=== PATIENT | male | born 1995 | race Asian ===

== ENCOUNTER 2019-10-28 23:50 | Emergency (ER) | payer SELFPAY ==
[~2019-10-28] VITALS: Ht 177.8 cm; Wt 59.0 kg
--- NOTE | 2019-10-29 00:14 | Emergency Room Report ---
History of Present Illness General Chief Complaint: Chest Pain Source: Patient Present Illness HPI Disclaimer: Please note that this report is being documented using [employer] technology. This can lead to erroneous entry secondary to incorrect interpretation by the dictating instrument. HPI: 24-year-old male presents for evaluation of chest numbness and tightness. Symptoms began abruptly approximately 1 hour ago. He noted tingling in a tightness over the left side of his chest rating the left arm. There was no syncope, no shortness of breath, no cough. States had a similar episode several years ago but nothing since. He was at rest when symptoms occurred. No exacerbating or relieving factors. He noted tachycardia and palpitations with a heart rate approximately 130 measured at home. He denies any recent fevers, URI symptoms, vomiting, diarrhea. He reports very poor sleep over the past few months giving him significant anxiety. He states he is unable to fall asleep or stay asleep only managing 2 to 4 hours of sleep nightly. He has concerned he may have a thyroid dysfunction. He does smoke tobacco through a vaporizing pen but denies alcohol, excessive caffeine, stimulant use. States there is a family history of hypertension his dad has coronary artery disease. PMH: Denies PSH: Orthopedic hand repair Allergies: Denies Social Hx: Tobacco use with vaporizer Allergies: Coded Allergies: No Known Allergies (Unverified , 10/29/19) COVID-19 Screening Contact w/high risk pt: No Recent Travel to affected area: No Experienced COVID-19 symptoms?: No Review of Systems All Other Systems: negative except mentioned in HPI Physical Exam Vital Signs Date Time Temp Pulse Resp B/P (MAP) Pulse Ox O2 Delivery O2 Flow Rate FiO2 10/28/19 23:57 98.4 76 18 128/80 (96) 97 Room Air General: Awake and alert, no acute distress HEENT: NC/AT. EOMI. Neck: Supple, trachea midline Chest Wall: No tenderness, no deformity Cardiovascular: RRR. S1 and S2 normal. No murmur appreciated Resp: Normal work of breathing. No cough, wheezing or crackles appreciated Abdomen: Abdomen is soft, nondistended. Nontender Skin: Intact. No abrasions, laceration or rash over the exposed skin MSK: Normal tone and bulk. Moving all extremities. No obvious deformity. Neuro: Awake and alert. Mentating appropriately. Medical Decision Making Diagnostic Impression: Primary Impression: Chest pain Additional Impressions: Sleep deficient Anxiety ER Course 24-year-old male presents for evaluation of palpitations, chest discomfort, anxiety. Arrives with stable vital signs and no acute distress. Differential includes was not limited to GERD, ACS, arrhythmia, anxiety disorder, electrolyte abnormality, dehydration, viral syndrome, thyroid dysfunction, stimulant use disorder to name a few. EKG shows sinus rhythm with some sinus arrhythmia but no ischemic changes, no biphasic T waves, overall unremarkable. Laboratory Tests Test 10/29/19 00:05 10/29/19 00:10 Urine Opiates Screen Negative (NEGATIVE) Urine Barbiturates Screen Negative (NEGATIVE) Phencyclidine (PCP) Screen Negative (NEGATIVE) Urine Amphetamines Screen Negative (NEGATIVE) Urine Benzodiazepines Screen Negative (NEGATIVE) Urine Cocaine Screen Negative (NEGATIVE) Urine Marijuana (THC) Screen Positive (NEGATIVE) H White Blood Count 9.3 K/UL (4.8-10.8) Red Blood Count 4.94 M/UL (4.70-6.10) Hemoglobin 15.0 G/DL (14.2-18.0) Hematocrit 42.8 % (42.0-52.0) Mean Corpuscular Volume 87 FL (80-99) Mean Corpuscular Hemoglobin 30.3 PG (27.0-31.0) Mean Corpuscular Hemoglobin Concent 35.0 G/DL (32.0-36.0) Red Cell Distribution Width 10.5 % (11.6-14.8) L Platelet Count 410 K/UL (150-450) Mean Platelet Volume 5.4 FL (6.5-10.1) L Neutrophils (%) (Auto) 63.0 % (45.0-75.0) Lymphocytes (%) (Auto) 28.0 % (20.0-45.0) Monocytes (%) (Auto) 6.0 % (1.0-10.0) Eosinophils (%) (Auto) 1.7 % (0.0-3.0) Basophils (%) (Auto) 1.3 % (0.0-2.0) Sodium Level 142 MMOL/L (136-145) Potassium Level 4.1 MMOL/L (3.5-5.1) Chloride Level 102 MMOL/L (98-107) Carbon Dioxide Level 29 MMOL/L (21-32) Anion Gap 11 mmol/L (5-15) Blood Urea Nitrogen 14 mg/dL (7-18) Creatinine 1.1 MG/DL (0.55-1.30) Estimated Glomerular Filtration Rate > 60 mL/min (>60) Glucose Level 95 MG/DL (74-106) Calcium Level 9.5 MG/DL (8.5-10.1) Total Bilirubin 0.7 MG/DL (0.2-1.0) Aspartate Amino Transferase (AST) 17 U/L (15-37) Alanine Aminotransferase (ALT) 22 U/L (12-78) Alkaline Phosphatase 49 U/L (46-116) Troponin I 0.000 ng/mL (0.000-0.056) Total Protein 8.4 G/DL (6.4-8.2) H Albumin 4.9 G/DL (3.4-5.0) Globulin 3.5 g/dL Albumin/Globulin Ratio 1.4 (1.0-2.7) Thyroid Stimulating Hormone (TSH) 0.585 uiU/mL (0.358-3.740) EKG Diagnostic Results EKG Time: 00:06 Rate: normal Rhythm: NSR ST Segments: no acute changes Other Impression Sinus rhythm, normal axis, normal intervals, no ST segment changes, T waves appear normal in morphology Rhythm Strip Diag. Results Rhythm Strip Time: 00:06 EP Interpretation: yes Rate: 70s Rhythm: NSR, no PVC's, no ectopy Chest X-Ray Diagnostic Results Chest X-Ray Diagnostic Results : Chest X-Ray Ordered: Yes # of Views/Limited/Complete: 1 View Indication: Chest Pain EP Interpretation: Yes Interpretation: no consolidation, no effusion, no pneumothorax, no acute cardiopulmonary disease Impression: No acute disease Electronically Signed by: Electronically signed by Dr. Jonas Montoya Reevaluation Time: 00:55 Last Vital Signs Date Time Temp Pulse Resp B/P (MAP) Pulse Ox O2 Delivery O2 Flow Rate FiO2 10/28/19 23:57 98.4 76 18 128/80 (96) 97 Room Air Reevaluation Impression Labs are largely within normal limits with TSH and troponin in the normal range. Patient tested positive for marijuana but no other substances. He is requesting referral to primary care and we will provide several clinics in the area which we can follow-up. Is reassured by this good news and we will follow- up on an outpatient basis to discuss his insomnia and other symptoms. Provided some information on sleep hygiene. Discussed reasons to return to the emergency department. He understands and agrees with treatment plan. Disposition: HOME, SELF-CARE Condition: Stable Referrals: NOT CHOSEN IPA/,REFERRING (PCP) Jonas Montoya MD October 29, 2019 00:14
[2019-10-29 00:17] VITALS: BP 122/74
[2019-10-29 00:26] LABS: BASOPHILS % (AUTO) 1.3 % (0.0-2.0); EOSINOPHILS % (AUTO) 1.7 % (0.0-3.0); HEMATOCRIT 42.8 % (42.0-52.0); MEAN CORPUSCULAR VOLUME 87 FL (80-99); PLATELET COUNT 410 K/UL (150-450); RED BLOOD COUNT 4.94 M/UL (4.70-6.10); RED CELL DISTRIBUTION WIDTH 10.5 % (11.6-14.8); WHITE BLOOD COUNT 9.3 K/UL (4.8-10.8)
[2019-10-29 00:40] LABS: ANION GAP 11 mmol/L (5-15); BLOOD UREA NITROGEN 14 mg/dL (7-18); CALCIUM 9.5 MG/DL (8.5-10.1); CARBON DIOXIDE 29 MMOL/L (21-32); CHLORIDE 102 MMOL/L (98-107); CREATININE 1.1 MG/DL (0.55-1.30); POTASSIUM 4.1 MMOL/L (3.5-5.1); SODIUM 142 MMOL/L (136-145)
[2019-10-29 00:53] LABS: ALANINE AMINOTRANSFERASE 22 U/L (12-78); ALBUMIN 4.9 G/DL (3.4-5.0); ALBUMIN/GLOBULIN RATIO 1.4 (1.0-2.7); ALKALINE PHOSPHATASE 49 U/L (46-116); ASPARTATE AMINO TRANSFERASE 17 U/L (15-37); BILIRUBIN,TOTAL 0.7 MG/DL (0.2-1.0)
[2019-10-29 01:05] VITALS: BP 124/67
--- NOTE | 2019-10-29 08:57 | Diagnostic Imaging Report ---
Indication: Chest tightness and stress with chest pain Technique: One view of the chest Comparison: none Findings: Lungs and pleural spaces are clear. Heart size is normal. Impression: No acute process
== END 2019-10-29 01:05 | disposition home or self-care (01) ==
LOC: EMR 10-29 00:07
DX: R07.9 Chest pain, unspecified (principal); F41.9 Anxiety disorder, unspecified; R20.0 Anesthesia of skin; R00.0 Tachycardia, unspecified; R00.2 Palpitations; G47.8 Other sleep disorders
CPT/HCPCS: 36415; 71045; 80053; 80307; 84443; 84484; 85025; 93005; 99283